=== PATIENT | male | born 1995 | race African-American/Black ===

== ENCOUNTER 2021-01-07 22:42 | Observation (INO) ==
[2021-01-07] MEDS ORDERED: ONDANSETRON 4 MG/2 ML VIAL IV STA (23:45)
[2021-01-07] MEDS ORDERED: SODIUM CHLORIDE 0.9% 500 ML IV STA (23:45)
[2021-01-07] MEDS ORDERED: KETOROLAC 30 MG/1 ML VIAL IV STA (23:45)
[2021-01-07] MEDS ORDERED: PANTOPRAZOLE 40 MG VIAL IV STA (23:45)
[2021-01-07 23:55] LABS: Basophils % 0.3 % (0.0-0.8); Eosinophils # 0.1 10*3/uL (0.0-0.87); Hematocrit 38.6 VOL% (42.0-52.0); Hemoglobin 12.6 GM/DL (14.0-18.0); Lymphocytes # 0.8 10*3/uL (1.4-4.0); Lymphocytes % 21.3 % (21.2-54.2); Mean Corpuscular HGB Conc 32.6 GM/DL (32-36); Mean Corpuscular Volume 89.4 FL (87-102); Mean Platelet Volume 10.6 FL (9.6-12.0); Monocytes % 9.4 % (1.7-12.7); Platelet Count 158 T/CUMM (130-400); Red Blood Count 4.32 MC/CUMM (3.8-5.5); Red Cell Distribution Width 12.8 % (9.3-17.3); White Blood Count 3.7 T/CUMM (4-12)
[2021-01-08 00:06] LABS: Lactic Acid 0.8 MMOL/L (0.4-2.0)
[2021-01-08 00:13] LABS: Albumin 3.4 G/DL (3.4-5.0); Bilirubin,Total 0.5 MG/DL (0.2-1.0); Calcium 8.9 MG/DL (8.5-10.1); Osmolality,Calculated 273.5 MOS/KG (273-304); Potassium 3.5 MMOL/L (3.5-5.1)
[2021-01-08 01:14] LABS: Eosinophils 4 % (0-10); Lymphocytes 22 % (20-55); Platelet Estimate Adequate; Segmented Neutrophils 62 % (50-85); Total Cells Counted 100
[2021-01-08] MEDS ORDERED: PIPERACILLIN/TAZOBACTAM 3,375 MG in SODIUM CHLORIDE 0.9% 100 ML IV STA (01:33)
[2021-01-08 01:52] LABS: Bacteria,Urine Occasional /HPF (Few); Bilirubin,Urine Negative (Negative); Blood, Urine Negative (Negative); Glucose,Urine (UA) Negative (Negative); Ketones,Urine 5 mg/dL (Negative); Mucus,Urine Occasional /LPF (Occasional); Nitrite,Urine Negative (Negative); Protein,Urine Negative; RBC,Urine <1 /HPF (0-4); Squamous Epithelial Cell,Urine Occasional /HPF (0-10); Urine Appearance CLEAR (Clear); Urine Color Yellow (Yellow); Urine Specific Gravity 1.016 (1.001-1.035); WBC,Urine 1 /HPF (0-6)
[2021-01-08] MEDS ORDERED: HYDROmorphone 2 MG/1 ML VIAL IV PRN (02:31)
[2021-01-08] MEDS ORDERED: ACETAMINOPHEN 325 MG TABLET PO PRN (02:31)
[2021-01-08] MEDS ORDERED: ONDANSETRON 4 MG/2 ML VIAL IV PRN (02:31)
[2021-01-08] MEDS: SODIUM CHLORIDE 0.9% 1,000 ML IV SCH ×3 (03:15→14:12)
[2021-01-08 05:18] LABS: Eosinophils # 0.1 10*3/uL (0.0-0.87); Eosinophils % 1.2 % (0.00-10.9); Hematocrit 33.1 VOL% (42.0-52.0); Hemoglobin 11.2 GM/DL (14.0-18.0); Immature Granulocytes % 0.2 %; Immature Granulocytes Absolute 0.01 #; Lymphocytes # 0.6 10*3/uL (1.4-4.0); Lymphocytes % 12.5 % (21.2-54.2); Mean Corpuscular HGB Conc 33.8 GM/DL (32-36); Mean Corpuscular Volume 87.6 FL (87-102); Mean Platelet Volume 10.7 FL (9.6-12.0); Monocytes % 9.1 % (1.7-12.7); Platelet Count 143 T/CUMM (130-400); Red Blood Count 3.78 MC/CUMM (3.8-5.5); Red Cell Distribution Width 12.8 % (9.3-17.3); White Blood Count 4.8 T/CUMM (4-12)
[2021-01-08 05:43] LABS: Calcium 8.3 MG/DL (8.5-10.1); Osmolality,Calculated 277.3 MOS/KG (273-304); Potassium 3.3 MMOL/L (3.5-5.1); Total Protein 7.7 G/DL (6.4-8.3)
[2021-01-08] MEDS ORDERED: DIAZEPAM 5 MG TABLET PO ONE (07:08)
[2021-01-08] MEDS ORDERED: FAMOTIDINE 20 MG TABLET PO ONE (07:08)
[2021-01-08] MEDS ORDERED: GABAPENTIN 400 MG CAPSULE PO ONE (07:08)
[2021-01-08] MEDS ORDERED: SUCCINYLCHOLINE 200 MG/10 ML VIAL ONE (08:01)
[2021-01-08] MEDS ORDERED: MIDAZOLAM 2 MG/2 ML VIAL ONE (08:01)
[2021-01-08] MEDS ORDERED: TISSUE ADHESIVE 1 EACH APPLICATOR TOP ONE (08:01)
[2021-01-08] MEDS ORDERED: LIDOCAINE 1%/EPI INJ 20 ML VIAL ONE (08:01)
[2021-01-08] MEDS ORDERED: LIDOCAINE 2% 5 ML VIAL ONE (08:01)
[2021-01-08] MEDS ORDERED: ROCURONIUM 50 MG/5 ML VIAL IV ONE (08:01)
[2021-01-08] MEDS ORDERED: propofoL 200 MG/20 ML VIAL IV ONE (08:01)
[2021-01-08] MEDS ORDERED: BUPIVACAINE MPF 0.25% 30 ML VIAL ONE (08:01)
[2021-01-08] MEDS ORDERED: fentaNYL 100 MCG/2 ML VIAL ONE ×2 (08:01→09:08)
[2021-01-08] MEDS ORDERED: DEXAMETHASONE 4 MG/1 ML VIAL ONE (08:29)
[2021-01-08] MEDS ORDERED: ONDANSETRON 4 MG/2 ML VIAL ONE (08:29)
[2021-01-08] MEDS ORDERED: PHENYLEPHRINE 1 MG/10 ML SYRINGE IV ONE (08:38)
[2021-01-08] MEDS ORDERED: SEVOFLURANE 1 UNIT/15 MINUTE INH ONE ×3 (08:38→09:25)
[2021-01-08] MEDS ORDERED: LACTATED RINGERS 1,000 ML IV ONE (08:38)
[2021-01-08] MEDS ORDERED: KETOROLAC 30 MG/1 ML VIAL ONE (08:44)
[2021-01-08] MEDS ORDERED: SUGAMMADEX 200 MG/2 ML VIAL IV ONE (08:59)
[2021-01-08] MEDS ORDERED: PIPERACILLIN/TAZOBACTAM 3,375 MG in SODIUM CHLORIDE 0.9% 100 ML IV SCH (09:00)
[2021-01-08 15:20] VITALS: BP 121/85
== END 2021-01-08 16:16 | disposition home or self-care (01) ==
LOC: N.ED 22:42 → N.EDINP 22:42 → N.5E 01-08 02:29
PROVIDERS: ADMIT Student in an Organized Health Care Education/Training Program; ATTEND Student in an Organized Health Care Education/Training Program